=== PATIENT | male | born 1960 | race Caucasian/White ===

== ENCOUNTER → 2016-11-01 | Outpatient (CLI) | payer BC ==
--- NOTE | 2016-11-01 09:51 | DIAGNOSTIC IMAGING REPORT ---
RIGHT FOOT MIN 3 VIEWS ROUTINE CLINICAL HISTORY: Right heel pain. No recent trauma. COMPARISON: None FINDINGS: The tarsometatarsal joints are intact. There is moderate posterior calcaneal spurring and mild plantar calcaneal spurring. No fracture or lesion is identified within the calcaneus. 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 There is no fracture within the right foot. There is mild arthritis within the right midfoot. IMPRESSION: 1. No acute fracture or dislocation within the right foot. 2. Moderate posterior and mild plantar calcaneal spurring. 3. 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 Electronically signed by: Phillip Alvarado M.D. 11/01/2016 9:50 AM Dictated Date/Time: 11/01/2016 9:48 AM
== END | disposition home or self-care (01) ==
LOC: C.RAD1850 09:33
PROVIDERS: ATTEND Internal Medicine
DX: M79.671 Pain in right foot (principal); M77.31 Calcaneal spur, right foot

== ENCOUNTER → 2017-05-17 | Outpatient (CLI) | payer BC ==
[~2017-05-17] MED LIST: OPTIRAY 320 IV PRN
--- NOTE | 2017-05-17 11:42 | DIAGNOSTIC IMAGING REPORT ---
CT OF THE ABDOMEN AND PELVIS WITH CONTRAST CLINICAL HISTORY: Left abdominal swelling/mass. COMPARISON STUDY: Abdominal ultrasound March 22, 2017. TECHNIQUE: Following IV administration of 93 mL of Optiray-320, axial images of the abdomen and pelvis were obtained from the lung bases to the proximal femurs. Images were reviewed in the axial, sagittal, and coronal planes. IV contrast was administered without complication. A dose lowering technique was utilized adhering to the principles of ALARA. CT DOSE: 531.53 mGy.cm FINDINGS: Lung bases are clear. The liver, spleen, adrenal glands, left kidney and pancreas are normal. There is a 1.5 cm right renal cyst. There is no hydronephrosis. There is no biliary or pancreatic ductal dilatation. A splenule is present. Caliber and wall thickness of small and large bowel are normal. A marker was placed on the skin at site of palpable abnormality, overlying the left anterior mid abdomen. No corresponding mass or hernia is identified. There are bilateral inguinal fat-containing hernias. There is no suspicious osseous lesion. There is no abdominal or pelvic lymphadenopathy. IMPRESSION: 1. No acute process within the abdomen or pelvis. 2. No mass, hernia or other abnormality to correlate with the palpable abnormality of the left mid abdomen. 3. Fat-containing bilateral inguinal hernias. Electronically signed by: Phillip Alvarado M.D. 05/17/2017 11:40 AM Dictated Date/Time: 05/17/2017 11:23 AM
== END | disposition home or self-care (01) ==
LOC: C.CTS 10:48
PROVIDERS: ATTEND Physician Assistant Medical
DX: R19.00 Intra-abdominal and pelvic swelling, mass and lump, unspecified site (principal); K40.90 Unilateral inguinal hernia, without obstruction or gangrene, not specified as recurrent

== ENCOUNTER → 2017-06-16 | Outpatient (CLI) | payer OTHER | END | disposition home or self-care (01) | LOC: C.LAB 07:58 | PROVIDERS: ATTEND Internal Medicine | DX: Z13.6 Encounter for screening for cardiovascular disorders (principal); Z12.5 Encounter for screening for malignant neoplasm of prostate ==

== ENCOUNTER → 2017-06-30 | Outpatient (CLI) | payer OTHER | END | disposition home or self-care (01) | LOC: C.LAB 08:17 | PROVIDERS: ATTEND Internal Medicine | DX: R79.9 Abnormal finding of blood chemistry, unspecified (principal) ==

== ENCOUNTER → 2017-07-28 | Outpatient (CLI) | payer OTHER | END | disposition home or self-care (01) | LOC: C.LAB 07:53 | PROVIDERS: ATTEND Nurse Practitioner | DX: E03.9 Hypothyroidism, unspecified (principal) ==

== ENCOUNTER → 2017-08-25 | Outpatient (CLI) | payer OTHER | END | disposition home or self-care (01) | LOC: C.LAB 07:34 | PROVIDERS: ATTEND Nurse Practitioner | DX: E03.9 Hypothyroidism, unspecified (principal) ==

== ENCOUNTER → 2017-08-25 | Outpatient (CLI) | payer OTHER | END | disposition home or self-care (01) | LOC: C.LAB 07:35 | PROVIDERS: ATTEND Urology | DX: R97.20 Elevated prostate specific antigen [PSA] (principal) ==

== ENCOUNTER → 2017-09-22 | Outpatient (CLI) | payer OTHER | END | disposition home or self-care (01) | LOC: C.LAB 07:25 | PROVIDERS: ATTEND Nurse Practitioner | DX: E03.9 Hypothyroidism, unspecified (principal) ==